=== PATIENT | female | born 1985 | race American Indian/Alaskan Native ===

== ENCOUNTER 2017-09-26 15:18 | Emergency (ER) | payer SELFPAY | END 2017-09-26 15:19 | disposition left against medical advice (07) | LOC: ED 15:18 | DX: Z53.21 Procedure and treatment not carried out due to patient leaving prior to being seen by health care provider (principal) ==

== ENCOUNTER 2017-12-03 14:29 | Emergency (ER) | payer SELFPAY | END 2017-12-03 17:30 | disposition left against medical advice (07) | LOC: ED 14:29 | DX: Z53.21 Procedure and treatment not carried out due to patient leaving prior to being seen by health care provider (principal) ==